=== PATIENT | female | born 1985 | race Caucasian/White ===

== ENCOUNTER 2016-12-16 09:43 | Emergency (ER) | payer OTHER ==
[~2016-12-16] VITALS: Ht 162.6 cm; Wt 70.3 kg
[~2016-12-16 09:43] MED LIST: ATIVAN1 MG PO; CEPHALEXIN500 M2 PO; CIPRO500 MG PO; CLEOCIN HCL300 MG PO; COLACE250 MG PO; DILAUDID2 MG PO; FEOSOL65 MG PO; FLEXERIL10 M1 PO; FLEXERIL10 MG PO; IMITREX100 MG PO; KEPPRA1000 MG PO; NORCO 10/325 MG1 TAB PO; PAXIL10 MG PO; PHENERGAN25 M1 PO; PRILOSEC40 MG PO; RESTORIL15 M1 PO; ROBAXIN500 M1 PO; TRAMADOL50 MG PO; TRANDATE100 M1 PO; TRILEPTAL600 MG PO; ULTRAM50 MG PO; VITAMIN D2000 I1 PO; ZANAFLEX4 MG PO; ZOFRAN ODT4 MG PO; ZOFRAN4 MG PO; ZOLADEX3.6 MG SC
--- NOTE | 2016-12-16 09:43 | NUR ---
PT BIBA TO BED 3 AT THIS TIME.
--- NOTE | 2016-12-16 09:45 | NUR ---
DR NORTH AT BEDSIDE EVALUATING PATIENT
[2016-12-16 09:46] VITALS: BP 132/92
--- NOTE | 2016-12-16 09:56 | NUR ---
PATIENT HAS AN 20 GA IV IN LEFT AC THAT WAS PLACED BY EMS.
--- NOTE | 2016-12-16 09:56 | NUR ---
PATIENT PRESENTS TO ED WITH POSSIBLE SIEZURE . PT STATES HER FAMILY MEMBER FOUND HER DOWN ON THE FLOOR AND SHE DOES NOT RECALL WHAT HAPPENED, PATIENT HAS A HX OF SEIZURES AND IS NOW C/O BILAT SHOULDER PAIN FROM POSSIBLE FALL TO THE GROUND . DENIES V/D; SKIN IS PINK/WARM/DRY; AAOX4 WITH EVEN AND STEADY GAIT; PT DENIES ANY FEVER, CP, SOB, OR COUGH AT THIS TIME; PATIENT STATES PAIN OF 6/10 AT THIS TIME; VSS; PATIENT POSITIONED FOR COMFORT; HOB ELEVATED; BEDRAILS UP X2; SEIZURE PRECAUTIONS IN PLACE ON BED, BED DOWN. ER MD MADE AWARE OF PT STATUS.
--- NOTE | 2016-12-16 10:10 | NUR ---
PATIENT TRANSPORT[place] [facility] BY COUNSELOR AID
[2016-12-16] MEDS ORDERED: KETOROLAC 30 MG/ML VIAL IVP ONE (10:15)
--- NOTE | 2016-12-16 10:36 | NUR ---
PATIENT BACK IN ROOM FROM XRAY, RESTING IN BED, BOTH SIDE RAILS UP X [address]
--- NOTE | 2016-12-16 11:36 | NUR ---
Patient discharged with v/s stable. Written and verbal after care instructions given and explained. Patient alert, oriented and verbalized understanding of instructions. Ambulatory with steady gait. All questions addressed prior to discharge. ID band removed. IV IN LEFT AC REMOVED, NO ACTIVE BLEEDING, SITE COVRERD WITH BANDAGE. Patient advised to follow up with PMD. Rx of NORCO given. Patient educated on indication of medication including possible reaction and side effects. Opportunity to ask questions provided and answered.
[2016-12-16 11:38] VITALS: BP 118/84
== END 2016-12-16 11:36 | disposition home or self-care (01) ==
LOC: MED 09:49
DX: M54.2 Cervicalgia (principal); M25.521 Pain in right elbow; M25.512 Pain in left shoulder; M25.511 Pain in right shoulder; R56.9 Unspecified convulsions
CPT/HCPCS: 72040; 73030; 73080; 81025; 96374; 99284; J1885

== ENCOUNTER 2017-06-15 22:36 | Emergency (ER) | payer OTHER ==
[~2017-06-15] VITALS: Ht 162.6 cm; Wt 83.9 kg
[~2017-06-15 22:36] MED LIST changes: -ATIVAN1 MG PO; -CEPHALEXIN500 M2 PO; -CIPRO500 MG PO; -CLEOCIN HCL300 MG PO; -COLACE250 MG PO; -DILAUDID2 MG PO; -FEOSOL65 MG PO; -FLEXERIL10 M1 PO; -FLEXERIL10 MG PO; -IMITREX100 MG PO; -KEPPRA1000 MG PO; +LEVE1000 PO; +LORA-476 PO; +METH500T14 PO; -NORCO 10/325 MG1 TAB PO; +OMEP40EC1 PO; +ONDA4TAB PO; +OXCA600T2 PO; +PAX10 PO; -PAXIL10 MG PO; -PHENERGAN25 M1 PO; -PRILOSEC40 MG PO; -RESTORIL15 M1 PO; -ROBAXIN500 M1 PO; +SUMA100T1 PO; +TRAM50TA94 PO; -TRAMADOL50 MG PO; -TRANDATE100 M1 PO; -TRILEPTAL600 MG PO; -ULTRAM50 MG PO; -VITAMIN D2000 I1 PO; -ZANAFLEX4 MG PO; -ZOFRAN ODT4 MG PO; -ZOFRAN4 MG PO; -ZOLADEX3.6 MG SC
[2017-06-15 22:51] VITALS: BP 112/86
--- NOTE | 2017-06-15 23:15 | NUR ---
PT TAKEN TO BED 3
--- NOTE | 2017-06-15 23:37 | NUR ---
MD CAME BY BEDSIDE TO EVALUATE PATIENT.
--- NOTE | 2017-06-15 23:40 | NUR ---
Dr. Sunshine evaluating patient at bedside.
[2017-06-15] MEDS ORDERED: HYDROmorphone 1 MG/ML AMP IVP ONE (23:45)
[2017-06-15] MEDS ORDERED: ONDANSETRON 4 MG/2 ML VIAL IVP ONE (23:45)
[2017-06-15] MEDS ORDERED: NACL 0.9% 1,000 ML IV ONE (23:45)
--- NOTE | 2017-06-15 23:55 | NUR ---
GAUGE 20 IV LINE ESTABLISHED TO THE RIGHT WRIST. BLOOD ALSO DRTAWN AND SENT TO THE LAB.
[2017-06-16 00:02] LABS: EOSINOPHILS # (AUTO) 0.1 K/uL (0-0.4); RED BLOOD CELL COUNT(AUTO) 4.05 MIL/uL (4.20-5.40); WHITE BLOOD COUNT (AUTO) 8.9 K/uL (4.8-10.8)
[2017-06-16 00:07] LABS: BASOPHILS # (AUTO) 0.3 K/uL (0.00-0.22); BASOPHILS % (AUTO) 3.2 % (0.0-2.0); EOSINOPHILS % (AUTO) 1.1 % (0.0-4.0); HEMATOCRIT 39.8 % (36-48); HEMOGLOBIN 13.3 g/dL (12.0-16.0); LYMPHOCYTES # (AUTO) 3.1 K/uL (2.5-16.5); LYMPHOCYTES % (AUTO) 35.3 % (20.5-51.1); MEAN CORPUSCULAR HEMOGLOBIN 33 pg (27-31); MEAN CORPUSCULAR HGB CONC 33 g/dL (33-37); MEAN CORPUSCULAR VOLUME 98 fL (80-94); MONOCYTES # (AUTO) 0.5 K/uL (0.8-1.0); MONOCYTES % (AUTO) 5.6 % (1.7-9.3); NEUTROPHILS # (AUTO) 4.9 K/uL (1.8-7.7); NEUTROPHILS % (AUTO) 54.8 % (42.2-75.2); PLATELET COUNT (AUTO) 382 K/uL (140-450); RED CELL DISTRIBUTION WIDTH 13.8 % (11.6-13.7)
--- NOTE | 2017-06-16 00:08 | NUR ---
NS 1 LITER @ 100 ML/HR,DILAUDID 1 MG IVP AND ZOFRAN 4 MG IVP GIVEN ORDERED. PT.HOOKED TO THE OFFICE SERVICE COORDINATOR.
[2017-06-16 00:15] LABS: ANION GAP 13.7 (8-16); CARBON DIOXIDE 26.6 mmol/L (21-32); POTASSIUM 4.3 mmol/L (3.5-5.1)
[2017-06-16 00:16] LABS: CREATININE 0.8 mg/dL (0.6-1.3)
[2017-06-16 00:22] LABS: ALBUMIN 3.4 g/dL (3.4-5.0); TOTAL BILIRUBIN 0.2 mg/dL (0.0-1.0)
[2017-06-16 00:23] LABS: PROTHROMBIN TIME 9.3 secs (10.8-13.4)
--- NOTE | 2017-06-16 00:46 | NUR ---
Ultrasound at bedside.
--- NOTE | 2017-06-16 00:47 | NUR ---
CARE TRANSITION COORDINATOR AT BEDSIDE TO DO PELVIC US.
[2017-06-16] MEDS ORDERED: HYDROmorphone 1 MG/ML AMP IVP ONE ×2 (01:25→04:15)
[2017-06-16] MEDS ORDERED: ONDANSETRON 4 MG/2 ML VIAL IVP ONE (01:25)
--- NOTE | 2017-06-16 01:42 | NUR ---
ANOTHER DOSE OF DILAUDID 1 MG IVP AND ZOFRAN 4 MG IVP GIVEN ORDERED FOR WOSENING PAIN AND NAUSEA.
--- NOTE | 2017-06-16 02:10 | NUR ---
VERBALIZED IMPROVEMENT OF PAIN AND NAUSEA. STILL WAITING FOR ULTRASOUND REPORT. VS REMAIN STABLE.
[2017-06-16] MEDS ORDERED: PROCHLORPERAZINE 10 MG/2 ML VIAL IVP ONE (03:05)
--- NOTE | 2017-06-16 03:07 | NUR ---
PATIENT ALSO SIGNED WAIVER TO DO CT SCAN WITHOUT TEST.
--- NOTE | 2017-06-16 03:07 | NUR ---
COMPLAINED OF PERSISTENT NAUSEA. MD NOTIFIED. MD BACK AT BEDSIDE TO REEVALUATE AND DISCUSS PLAN OF CARE WITH PATIENT. COMPAZINE 10 MG IVP GIVEN ORDERED.
--- NOTE | 2017-06-16 03:12 | NUR ---
WENT FOR CT SCAN OF ABDOMEN AND PELVIS VIA WHEELCHAIR.
--- NOTE | 2017-06-16 04:30 | NUR ---
Patient discharged with v/s stable. Written and verbal after care instructions given and explained. Patient alert, oriented and verbalized understanding of instructions. Ambulatory with steady gait. All questions addressed prior to discharge. ID band removed. Patient advised to follow up with PMD. Rx of NORCO,REGLAN,ZOFRAN given. Patient educated on indication of medication including possible reaction and side effects. Opportunity to ask questions provided and answered.
[2017-06-16 04:43] VITALS: BP 121/79
== END 2017-06-16 04:30 | disposition home or self-care (01) ==
LOC: MED 22:36
DX: N83.201 Unspecified ovarian cyst, right side (principal); R03.0 Elevated blood-pressure reading, without diagnosis of hypertension; K21.9 Gastro-esophageal reflux disease without esophagitis
CPT/HCPCS: 36415; 74176; 76856; 80053; 81002; 81025; 85025; 85610; 85730; 96361; 96374; 96375; 96376; 99285; J0780; J1170; J2405; J7030; Q0092

== ENCOUNTER 2017-07-23 12:51 | Inpatient (IN) | payer OTHER ==
[~2017-07-23] VITALS: Ht 162.6 cm; Wt 83.5 kg
[~2017-07-23 12:51] MED LIST changes: +TRAM50TA1 PO; -TRAM50TA94 PO
[2017-07-23 12:59] VITALS: BP 125/31
[2017-07-23] MEDS ORDERED: NACL 0.9% 1,000 ML IV ONE (13:05)
[2017-07-23 13:18] LABS: HEMATOCRIT 45.7 % (36-48); HEMOGLOBIN 14.6 g/dL (12.0-16.0); MEAN CORPUSCULAR HEMOGLOBIN 32 pg (27-31); MEAN CORPUSCULAR HGB CONC 32 g/dL (33-37); MEAN CORPUSCULAR VOLUME 99 fL (80-94); PLATELET COUNT (AUTO) 320 K/uL (140-450); RED CELL DISTRIBUTION WIDTH 14.8 % (11.6-13.7); WHITE BLOOD COUNT (AUTO) 7.1 K/uL (4.8-10.8)
[2017-07-23 13:28] LABS: ANION GAP 14.1 (8-16); CARBON DIOXIDE 29.7 mmol/L (21-32); CHLORIDE 109 mmol/L (98-107); GFR ARICAN-AMERICAN 83 mL/min (>90); GLUCOSE 89 mg/dL (74-106); POTASSIUM 3.8 mmol/L (3.5-5.1); PROTHROMBIN TIME 10.2 secs (10.8-13.4); SODIUM SERUM 149 mmol/L (136-145); UREA NITROGEN, BLOOD 5 mg/dL (7-18)
[2017-07-23 13:34] LABS: BASOPHILS % (MANUAL) 1 % (0-2); EOSINOPHILS % (MANUAL) 3 % (0-4); LYMPHOCYTES % (MANUAL) 55 % (20-46); MONOCYTES % (MANUAL) 5 % (5-12)
[2017-07-23 13:38] LABS: ALBUMIN 3.7 g/dL (3.4-5.0); ASPARTATE AMINOTRANSFERASE 232 U/L (15-37); TOTAL BILIRUBIN 0.4 mg/dL (0.0-1.0)
[2017-07-23 13:42] LABS: ACETAMINOPHEN < 0.5 ug/ml (10-30); SALICYLATE < 2.8 mg/dL (2.8-20.0)
[2017-07-23] MEDS ORDERED: NACL 0.9% 2,000 ML IV ONE (14:25)
[2017-07-23 14:51] LABS: BARBITURATE, URINE NEG. ng/ml (NEG <=200); BENZODIAZEPINE, URINE NEG. ng/mL (NEG <=200); CANNABINOID, URINE NEG. ng/mL (NEG <=50); COCAINE, URINE NEG. ng/mL (NEG <=300); OPIATE, URINE NEG. ng/mL (NEG <=2000); PHENCYCLIDINE SCREEN,URINE NEG. ng/mL (NEG <=25)
[2017-07-23] MEDS ORDERED: KETOROLAC 30 MG/ML VIAL IVP ONE (15:25)
[2017-07-23] MEDS ORDERED: MORPHINE SULFATE 4 MG/ML SYR IVP ONE ×2 (15:35→15:40)
[2017-07-23] MEDS ORDERED: NACL 0.9% 1,000 ML IV SCH (15:44)
[2017-07-23] MEDS ORDERED: LORazepam 2 MG/ML VIAL IVP PRN (15:45)
[2017-07-23 16:35] VITALS: BP 143/89
[2017-07-23 20:00] VITALS: BP 136/98
[2017-07-23] MEDS: MORPHINE SULFATE 2 MG/ML SYR IVP PRN (20:32)
[2017-07-23] MEDS: levETIRAcetam 500 MG TAB PO SCH (20:32)
[2017-07-23] MEDS: DEXT 5% / NACL 0.45% 1,000 ML IV SCH (21:47)
[2017-07-24] VITALS: BP 122/80
[2017-07-24] MEDS: MORPHINE SULFATE 2 MG/ML SYR IVP PRN ×5 (00:32→18:39)
[2017-07-24] MEDS: ONDANSETRON 4 MG/2 ML VIAL IVP PRN ×4 (05:43→18:38)
[2017-07-24 06:13] LABS: BASOPHILS # (AUTO) 0.3 K/uL (0.00-0.22); BASOPHILS % (AUTO) 3.2 % (0.0-2.0); EOSINOPHILS # (AUTO) 0.1 K/uL (0-0.4); EOSINOPHILS % (AUTO) 1.1 % (0.0-4.0); HEMATOCRIT 41.1 % (36-48); HEMOGLOBIN 13.6 g/dL (12.0-16.0); LYMPHOCYTES # (AUTO) 2.5 K/uL (2.5-16.5); LYMPHOCYTES % (AUTO) 25.8 % (20.5-51.1); MEAN CORPUSCULAR HEMOGLOBIN 33 pg (27-31); MEAN CORPUSCULAR HGB CONC 33 g/dL (33-37); MEAN CORPUSCULAR VOLUME 100 fL (80-94); MONOCYTES # (AUTO) 0.9 K/uL (0.8-1.0); NEUTROPHILS # (AUTO) 5.7 K/uL (1.8-7.7); NEUTROPHILS % (AUTO) 60.9 % (42.2-75.2); PLATELET COUNT (AUTO) 258 K/uL (140-450); RED BLOOD CELL COUNT(AUTO) 4.11 MIL/uL (4.20-5.40); RED CELL DISTRIBUTION WIDTH 14.6 % (11.6-13.7); WHITE BLOOD COUNT (AUTO) 9.5 K/uL (4.8-10.8)
[2017-07-24 07:03] LABS: ALBUMIN 3.4 g/dL (3.4-5.0); ANION GAP 12.4 (8-16); CARBON DIOXIDE 28.1 mmol/L (21-32); CREATININE 0.8 mg/dL (0.6-1.3); MAGNESIUM 1.5 mg/dL (1.8-2.4); PHOSPHORUS 3.2 mg/dL (2.5-4.9); POTASSIUM 3.5 mmol/L (3.5-5.1); TOTAL BILIRUBIN 0.7 mg/dL (0.0-1.0)
[2017-07-24] MEDS: DEXT 5% / NACL 0.45% 1,000 ML IV SCH ×2 (07:29→17:13)
[2017-07-24] MEDS ORDERED: INFLUENZA VIRUS VACCINE QUAD 0.5 ML SYR IMVAC PRN (07:30)
[2017-07-24 08:00] VITALS: BP 115/91
[2017-07-24] MEDS: PANTOPRAZOLE 40 MG INJ VIAL IVP SCH (08:27)
[2017-07-24] MEDS: levETIRAcetam 500 MG TAB PO SCH ×2 (08:27→20:35)
[2017-07-24] MEDS: ENOXAPARIN 40 MG/0.4 ML SYR SUBQ SCH (08:28)
[2017-07-24] MEDS ORDERED: ACET-5629 PO (10:07)
[2017-07-24 15:56] VITALS: BP 124/90
[2017-07-24 19:56] VITALS: BP 139/89
[2017-07-24] MEDS: MAGNESIUM OXIDE 400 MG TAB PO SCH (20:35)
[2017-07-24] MEDS: HYDROmorphone 1 MG/ML AMP IVP PRN (23:20)
[2017-07-25] VITALS: BP 134/95
[2017-07-25] MEDS: ONDANSETRON 4 MG/2 ML VIAL IVP PRN ×2 (03:40→13:52)
[2017-07-25] MEDS: DEXT 5% / NACL 0.45% 1,000 ML IV SCH ×2 (03:43→13:35)
[2017-07-25] MEDS: HYDROmorphone 1 MG/ML AMP IVP PRN ×3 (03:54→13:52)
[2017-07-25 06:22] LABS: ALBUMIN 3.6 g/dL (3.4-5.0); ANION GAP 12.2 (8-16); CARBON DIOXIDE 26.8 mmol/L (21-32); CREATININE 0.9 mg/dL (0.6-1.3)
[2017-07-25 07:50] VITALS: BP 124/72
[2017-07-25] MEDS ORDERED: POTASSIUM CHLORIDE 10 MEQ TABER PO SCH (08:05)
[2017-07-25] MEDS: levETIRAcetam 500 MG TAB PO SCH (08:31)
[2017-07-25] MEDS: MAGNESIUM OXIDE 400 MG TAB PO SCH (08:31)
[2017-07-25] MEDS: ENOXAPARIN 40 MG/0.4 ML SYR SUBQ SCH (08:35)
[2017-07-25] MEDS ORDERED: CLINICAL MONITORING MC SCH (09:00)
[2017-07-25] MEDS: PANTOPRAZOLE 40 MG INJ VIAL IVP SCH (09:01)
[2017-07-25 15:04] VITALS: BP 136/95
== END 2017-07-25 15:25 | disposition home or self-care (01) | DRG 282 ==
LOC: MED 12:51 → MTU 15:47
PROVIDERS: ADMIT Hospitalist; ATTEND Hospitalist
DX: K85.20 Alcohol induced acute pancreatitis without necrosis or infection (principal); E87.0 Hyperosmolality and hypernatremia; E66.9 Obesity, unspecified; K21.9 Gastro-esophageal reflux disease without esophagitis; F10.129 Alcohol abuse with intoxication, unspecified; Y90.8 Blood alcohol level of 240 mg/100 ml or more; E83.42 Hypomagnesemia; G89.29 Other chronic pain; G40.909 Epilepsy, unspecified, not intractable, without status epilepticus; M51.36 Other intervertebral disc degeneration, lumbar region; Z72.89 Other problems related to lifestyle; Z68.31 Body mass index [BMI] 31.0-31.9, adult; Z87.891 Personal history of nicotine dependence
CPT/HCPCS: 36415; 76705; 80053; 80305; 81002; 81025; 83690; 83735; 84100; 85025; 85610; 87081; 90658; 96361; 96374; 99285; C9113; G0480; G0482; J1170; J1650; J1885; J2270; J2405; J7030; Q0092

== ENCOUNTER 2017-11-13 10:17 | Emergency (ER) | payer OTHER ==
[~2017-11-13] VITALS: Ht 162.6 cm; Wt 90.9 kg
[~2017-11-13 10:17] MED LIST changes: +ACET-5629 PO
[2017-11-13 10:28] VITALS: BP 135/89
--- NOTE | 2017-11-13 10:36 | NUR ---
PT AMBULATED TO ER BED 03
--- NOTE | 2017-11-13 10:40 | NUR ---
32 F WITH C/O 7/10 RIGHT ANKLE SWELLING/PAIN X 3 WKS, PRGRESSIVELY GETTING WORSE; DISCOLORATION PRESENT BUT PT STS GETTING BETTER; PT DENIES INJURY OR RECENT FALLS. SKIN AND CMS INTACT TO RIGHT FOOT. PT IS AOX4. GCS=15. RR ARE EVEN AND UNLABORED. NAD. ER MD SECHRIST BY BEDSIDE. WILL CONTINUE TO MONITOR.
[2017-11-13] MEDS ORDERED: HYDROcodone/APAP 5/325 MG 1 TAB TAB PO ONE (10:45)
--- NOTE | 2017-11-13 10:58 | NUR ---
XRAY BY BEDSIDE
--- NOTE | 2017-11-13 11:52 | NUR ---
Patient discharged with v/s stable. Written and verbal after care instructions given and explained. Patient verbalized understanding. Ambulatory with steady gait. All questions addressed prior to discharge. Advised to follow up with PMD.
[2017-11-13 11:53] VITALS: BP 135/89
== END 2017-11-13 11:52 | disposition home or self-care (01) ==
LOC: MED 10:17
DX: S93.401A Sprain of unspecified ligament of right ankle, initial encounter (principal); R03.0 Elevated blood-pressure reading, without diagnosis of hypertension; X58.XXXA Exposure to other specified factors, initial encounter; Y93.89 Activity, other specified; Y92.89 Other specified places as the place of occurrence of the external cause; Y99.8 Other external cause status
CPT/HCPCS: 73610; 73630; 99284; Q0092

== ENCOUNTER 2018-01-22 04:12 | Inpatient (IN) | payer OTHER ==
[~2018-01-22] VITALS: Ht 162.6 cm; Wt 58.5 kg
[2018-01-22 04:12] VITALS: BP 135/92
--- NOTE | 2018-01-22 04:12 | NUR ---
BIBA FOR ALOC AND NVD. PT SPEECH IS SLOW, RESPONDS APPROPRIATELY TO QUESTIONS ASKED, JUST TAKES PT AWHILE TO RESPOND. PT JUST STATES SHE IS TIRED. PT SKIN IS PINK/WARM/DRY; LUNGS CLEAR BL; HR EVEN AND REGULAR;NO FEVER, CP, SOB, OR COUGH AT THIS TIME; PATIENT STATES PAIN OF 0/10 AT THIS TIME; PATIENT POSITIONED FOR COMFORT; HOB ELEVATED; BEDRAILS UP X2; BED DOWN. ER MD MADE AWARE OF PT STATUS.
[2018-01-22 05:31] LABS: APPEARANCE,URINE HAZY (CLEAR); BILIRUBIN,URINE NEGATIVE (NEGATIVE); BLOOD, URINE NEGATIVE (NEGATIVE); COLOR,URINE YELLOW (YELLOW); LEUKOCYTE ESTERASE ,URINE NEGATIVE (NEGATIVE); NITRITE, URINE NEGATIVE (NEGATIVE); UGLUCOSE NEGATIVE (NEGATIVE)
[2018-01-22 05:33] LABS: BASOPHILS % (AUTO) 0.2 % (0.0-2.0); EOSINOPHILS % (AUTO) 0.1 % (0.0-4.0); HEMATOCRIT 39.6 % (36-48); HEMOGLOBIN 13.3 g/dL (12.0-16.0); LYMPHOCYTES # (AUTO) 1.9 K/uL (2.5-16.5); MEAN CORPUSCULAR HEMOGLOBIN 32 pg (27-31); MEAN CORPUSCULAR HGB CONC 34 g/dL (33-37); MEAN CORPUSCULAR VOLUME 95.7 fL (80-94); MONOCYTES # (AUTO) 0.2 K/uL (0.8-1.0); MONOCYTES % (AUTO) 3.5 % (1.7-9.3); NEUTROPHILS # (AUTO) 2.5 K/uL (1.8-7.7); NEUTROPHILS % (AUTO) 55.2 % (42.2-75.2); PLATELET COUNT (AUTO) 236 K/uL (140-450); RED BLOOD CELL COUNT(AUTO) 4.13 MIL/uL (4.20-5.40); RED CELL DISTRIBUTION WIDTH 14.6 % (11.6-13.7); WHITE BLOOD COUNT (AUTO) 4.5 K/uL (4.8-10.8)
[2018-01-22 05:37] LABS: BARBITURATE, URINE NEG. ng/ml (NEG <=200); BENZODIAZEPINE, URINE NEG. ng/mL (NEG <=200); CANNABINOID, URINE NEG. ng/mL (NEG <=50); COCAINE, URINE NEG. ng/mL (NEG <=300); OPIATE, URINE NEG. ng/mL (NEG <=2000); PHENCYCLIDINE SCREEN,URINE NEG. ng/mL (NEG <=25)
[2018-01-22 05:55] LABS: ANION GAP 14.9 (8-16); CARBON DIOXIDE 24.5 mmol/L (21-32); CHLORIDE 107 mmol/L (98-107); GFR ARICAN-AMERICAN 83 mL/min (>90); GLUCOSE 93 mg/dL (74-106); POTASSIUM 4.4 mmol/L (3.5-5.1); SODIUM SERUM 142 mmol/L (136-145); UREA NITROGEN, BLOOD 9 mg/dL (7-18)
[2018-01-22 05:57] LABS: RBC,URINE 0-5 (RARE) /HPF (0-5); WBC,URINE 0-5 (RARE) /HPF (0-5)
[2018-01-22 06:02] LABS: ALBUMIN 3.4 g/dL (3.4-5.0); ASPARTATE AMINOTRANSFERASE 12 U/L (15-37); TOTAL BILIRUBIN 0.2 mg/dL (0.0-1.0)
[2018-01-22 06:03] LABS: ACETAMINOPHEN < 0.5 ug/ml (10-30); SALICYLATE < 2.8 mg/dL (2.8-20.0)
--- NOTE | 2018-01-22 07:00 | NUR ---
Patient appears to be resting comfortably in bed. Vital Signs within normal limits. Respirations even and unlabored.
--- NOTE | 2018-01-22 07:05 | NUR ---
Pt report given to AM SCOTTY Rangel. Transfer of care at this time.
--- NOTE | 2018-01-22 07:23 | NUR ---
REPORT RECEIEVED FROM MARY FAJARDO. PT IN BED AROUSABLE TO NAME BUT WAS CONFUSED ABOUT WHERE SHE WAS, SHE KNEW SHE WAS IN A HOSPITAL BUT DIDNT KNOW WHICH ONE. PT DISPLAYED FACIAL GRIMACING AND SAID HER BACK PAIN WAS 8/10. SHE DENIES N/V/D AT THIS TIME.
[2018-01-22] MEDS ORDERED: NACL 0.9% 1,000 ML IV ONE (08:05)
--- NOTE | 2018-01-22 08:06 | NUR ---
PT TAKEN TO CT
[2018-01-22 10:40] VITALS: BP 140/90
--- NOTE | 2018-01-22 10:40 | NUR ---
PATIENT ARRIVED ON MST UNIT FROM ER BED/GURNEY. ABLE TO WALK FROM ER BED/GURNEY TO MST BED. NO DISTRESS NOTED. RESPIRATIONS EVEN, UNLABORED, ON ROOM AIR. AAOX3, CALM, COOPERATIVE, REPORT FEELING FATIGUE. SKIN COLOR APPROPRIATE TO ETHNICITY, WARM TO TOUCH. IV SITE INTACT, PATENT, AND INFUSING IVF BOLUS HALF BAG COMPLETED FROM ER. ABDOMEN SOFT, NON-DISTENDED. LUNGS CTA ON ALL LOBES. ORIENTED PATIENT TO ROOM AND CALL LIGHT. SAFETY MEASURES IN PLACE, CALL LIGHT WITHIN REACH, SEIZURE PRECAUTIONS IN PLACE. WILL CONTINUE TO MONITOR.
--- NOTE | 2018-01-22 10:51 | NUR ---
Patient will be admitted to care of DR BRAMBILA. Admited to TELE. Will go to room 111A. Belongings list completed. Report to NOLAN FAJARDO.
--- NOTE | 2018-01-22 11:15 | NUR ---
DR. CANCINO AT BEDSIDE REVIEWING PLAN OF CARE WITH PATIENT. WILL CONTINUE TO MONITOR.
[2018-01-22] MEDS ORDERED: LORazepam 2 MG/ML VIAL IM/IVP PRN (11:25)
[2018-01-22] MEDS ORDERED: ONDANSETRON 4 MG/2 ML VIAL IVP PRN ×2 (11:25→16:50)
--- NOTE | 2018-01-22 11:30 | NUR ---
FAXED THE CONFIDENTIAL MORBIDITY REPORT FORM TO [phone] NO RESPONSE TRIED IT AGAIN NO RESPONSE . NOTIFIED DR CANCINO ,CALLED THE AFTER HR SPOKE WITH CHATA FONSECA NO OTHER FAX # SUGGESTED TO TRY IT TOMORROW.
[2018-01-22 12:00] VITALS: BP 112/67
--- NOTE | 2018-01-22 12:05 | NUR ---
NEW ADMIT WITH INSUFFICIENT DATA IN PT MEDICAL CHART TO BE NUTRITIONALLY SCREENED OR CATEGORIZED. PATIENT IS NUTRITION SCREEN DUE IN TWO DAYS. 01/24/18 TALIB GEE MBA, RD
[2018-01-22] MEDS: levETIRAcetam 1,500 MG in NACL 0.9% 100 ML IV SCH (12:10)
[2018-01-22] MEDS: OXcarbazepine 150 MG TAB PO SCH ×2 (12:19→18:18)
--- NOTE | 2018-01-22 12:22 | NUR ---
PATIENT SITTING IN BED WATCHING TV. PATIENT AMBULATED TO BATHROOM AND BACK TO BED WITH STEADY GAIT. PATIENT HAS SLIGHT TREMORS ON B/L UE. SCHEDULED MEDICATIONS DUE GIVEN PER MD ORDERS. SAFETY MEASURES IN PLACE, CALL LIGHT WITHIN REACH. WILL CONTINUE TO MONITOR.
[2018-01-22] MEDS: MORPHINE SULFATE 4 MG/ML SYR IVP PRN ×2 (13:52→18:19)
--- NOTE | 2018-01-22 14:30 | NUR ---
PATIENT LYING IN BED, AROUSABLE BY VOICE. NO DISTRESS NOTED. PAIN WITHIN TOLERABLE. CONDITION UNCHANGED. WILL CONTINUE TO MONITOR.
[2018-01-22 16:00] VITALS: BP 133/94
--- NOTE | 2018-01-22 16:45 | NUR ---
DR. BRAMBILA AT BEDSIDE REVIEWING PLAN OF CARE WITH PATIENT. WILL CONTINUE TO MONITOR.
[2018-01-22] MEDS ORDERED: LORazepam 2 MG/ML VIAL IVP PRN (16:50)
[2018-01-22] MEDS ORDERED: MORPHINE SULFATE 2 MG/ML SYR IVP PRN (16:50)
[2018-01-22] MEDS ORDERED: MULTIVITAMIN-12 10 ML, THIAMINE 100 MG, MAGNESIUM SULFATE 50% 2,000 MG, FOLIC ACID 5 MG... IV ONE ×5 (16:50)
[2018-01-22] MEDS ORDERED: ACETAMINOPHEN 325 MG TAB PO PRN (16:50)
[2018-01-22 17:25] LABS: AMYLASE 47 U/L (25-115); LIPASE 64 U/L (73-393)
--- NOTE | 2018-01-22 18:00 | NUR ---
PATIENT SITTING IN BED WITH DINNER TRAY IN FRONT. NO DISTRESS NOTED. COMPLAINTS OF PAIN, MORPHINE GIVEN PER ORDERS. SAFETY MEASURES IN PLACE. WILL CONTINUE TO MONITOR.
--- NOTE | 2018-01-22 19:21 | NUR ---
ENDORSED TO PM NURSE AT BEDSIDE. PT IN STABLE CONDITION.
--- NOTE | 2018-01-22 19:22 | NUR ---
RECEIVED REPORT FROM DAY SHIFT NURSE NOLAN-RN. PT RESTING IN BED. AOX3, AMBULATORY, ON ROOM AIR. IV LEFT AC#20G. DISCUSSED PLAN OF CARE AND PT VERBALIZED UNDERSTANDING. UPDATED WHITE BOARD. NO S/S OF RESPIRATORY DISTRESS OR DISCOMFORT AT THIS TIME. BED IN LOWEST POSITION. BED SIDE TABLE AND CALL LIGHT WITHIN REACH. WILL CONTINUE TO MONITOR.
[2018-01-22 20:00] VITALS: BP 149/104
[2018-01-22] MEDS ORDERED: MULTIVITAMIN-12 10 ML VIAL IV ONE (21:15)
[2018-01-22] MEDS ORDERED: MAGNESIUM SULFATE 50% 1000 MG/2 ML VIAL IV ONE (21:16)
[2018-01-22] MEDS ORDERED: FOLIC ACID 5 MG/ML SYR ONE (21:17)
[2018-01-22] MEDS ORDERED: THIAMINE 200 MG/2 ML VIAL ONE (21:40)
--- NOTE | 2018-01-22 22:05 | NUR ---
LIBRIUM GIVEN AT 2152. BANANA BAG STARTED AT 2202. BOTH UNAVAILABLE WHEN SCHEDULED. [facility] FIRE CONTROL OFFICER CALLED TO RETRIEVE MEDICATION. UNAVAILABLE ON THE UNIT. PT TOLERATING WELL. WILL CONTINUE TO MONITOR.
[2018-01-22] MEDS ORDERED: MORPHINE SULFATE 4 MG/ML SYR ONE (22:30)
--- NOTE | 2018-01-22 22:35 | NUR ---
MORPHINE SULFATE GIVEN FOR BACK PAIN. WILL CONTINUE TO MONITOR.
[2018-01-23] VITALS: BP 154/104
[2018-01-23] MEDS: levETIRAcetam 1,500 MG in NACL 0.9% 100 ML IV SCH ×2 (00:15→12:54)
--- NOTE | 2018-01-23 00:15 | NUR ---
VITAL SIGNS TOLERATED WELL. SCHEDULED MEDICATIONS GIVEN AND TOLERATED WELL. WILL CONTINUE TO MONITOR.
--- NOTE | 2018-01-23 02:00 | NUR ---
PT RESTING IN BED. NO S/S OF RESPIRATORY DISTRESS. WILL CONTINUE TO MONITOR.
[2018-01-23 04:00] VITALS: BP 144/101
[2018-01-23] MEDS ORDERED: MORPHINE SULFATE 4 MG/ML SYR ONE (04:09)
--- NOTE | 2018-01-23 04:11 | NUR ---
MORPHINE SULFATE GIVEN FOR BACK PAIN. WILL CONTINUE TO MONITOR.
--- NOTE | 2018-01-23 06:14 | NUR ---
PT STATED BACK PAIN INCREASING REQUESTING HOT PACK BUT UNAVAILABLE ON THE UNIT. TRYING A WARM BLANKET. WILL TRY COLD PACK. EDUCATED ON WALKING AROUND THE UNIT POSSIBLY BEING HELPFUL INSTEAD OF LAYING IN BED CONTINUOUSLY. WILL CONTINUE TO MONITOR.
[2018-01-23 06:47] LABS: BASOPHILS # (AUTO) 0.3 K/uL (0.00-0.22); BASOPHILS % (AUTO) 4.5 % (0.0-2.0); EOSINOPHILS % (AUTO) 0.5 % (0.0-4.0); HEMATOCRIT 36.5 % (36-48); HEMOGLOBIN 12.5 g/dL (12.0-16.0); LYMPHOCYTES # (AUTO) 2.6 K/uL (2.5-16.5); LYMPHOCYTES % (AUTO) 43.7 % (20.5-51.1); MEAN CORPUSCULAR HEMOGLOBIN 33 pg (27-31); MEAN CORPUSCULAR HGB CONC 34 g/dL (33-37); MEAN CORPUSCULAR VOLUME 95.9 fL (80-94); MONOCYTES # (AUTO) 0.6 K/uL (0.8-1.0); MONOCYTES % (AUTO) 11.1 % (1.7-9.3); NEUTROPHILS # (AUTO) 2.3 K/uL (1.8-7.7); NEUTROPHILS % (AUTO) 40.2 % (42.2-75.2); PLATELET COUNT (AUTO) 191 K/uL (140-450); RED BLOOD CELL COUNT(AUTO) 3.81 MIL/uL (4.20-5.40); RED CELL DISTRIBUTION WIDTH 13.7 % (11.6-13.7); WHITE BLOOD COUNT (AUTO) 5.8 K/uL (4.8-10.8)
--- NOTE | 2018-01-23 07:30 | NUR ---
ENDORSED PT CARE TO DAY SHIFT NURSE JANIE FOR CONTINUITY OF CARE. PT CURRENTLY IN STABLE CONDITION.
--- NOTE | 2018-01-23 07:35 | NUR ---
RECEIVED REPORT FROM SLOT OPERATIONS DIRECTOR NURSE, PT IS RESTING IN BED, PT IS AAOX4, AMBULATORY, PT HAS IV ON LEFT AC, PATENT, INTACT, FLUSHING WELL, SKIN IS INTACT, NO S/S OF RESPIRATORY DISTRESS OR DISCOMFORT NOTED, DISCUSSED PLAN OF CARE WITH PT, PT VERBALIZED UNDERSTANDING, SAFETY/FALL/SEIZURE PRECAUTIONS ARE IN PLACE, CALL LIGHT WITHIN REACH, WILL CONTINUE TO MONITOR.
[2018-01-23 07:54] LABS: ANION GAP 12.4 (8-16); CARBON DIOXIDE 26.5 mmol/L (21-32); CREATININE 1.1 mg/dL (0.6-1.3); POTASSIUM 3.9 mmol/L (3.5-5.1)
[2018-01-23 07:57] LABS: ALBUMIN 3.2 g/dL (3.4-5.0); TOTAL BILIRUBIN 0.3 mg/dL (0.0-1.0)
[2018-01-23 08:00] VITALS: BP 144/109
[2018-01-23] MEDS: OXcarbazepine 150 MG TAB PO SCH ×2 (08:28→12:55)
[2018-01-23] MEDS ORDERED: ENOXAPARIN 40 MG/0.4 ML SYR SUBQ SCH (09:00)
--- NOTE | 2018-01-23 09:46 | NUR ---
PATIENT HAS BEEN SCREENED AND CATEGORIZED HIGH NUTRITION RISK. PATIENT WILL BE SEEN WITHIN 1-2 DAYS OF ADMISSION. 01/23/18 - 01/24/[address]
--- NOTE | 2018-01-23 12:00 | NUR ---
ENDORSED PT TO SCOTTY GASCA FOR CONTINUITY OF CARE. PT STABLE AT THIS TIME.
--- NOTE | 2018-01-23 12:06 | NUR ---
RECEIVED REPORT FROM SCOTTY QUEEN. PATIENT ALERT AND ORIENTED X3 LYING IN THE BED C/C OF HEADACHE 04/18.CALL LIGHT WITHIN REACH.CONTINUE MONITORING PAIN.
[2018-01-23] MEDS ORDERED: MORPHINE SULFATE 4 MG/ML SYR IVP PRN (12:09)
[2018-01-23 13:00] VITALS: BP 147/105
--- NOTE | 2018-01-23 13:14 | NUR ---
CM NOTE INITIAL REVIEW FAXED TO [facility] [phone] ALIREZA # [phone]
--- NOTE | 2018-01-23 16:01 | NUR ---
01/23/18 RD INITIAL ASSESSMENT COMPLETED PLEASE REFER TO NUTRITION ASSESSMENT UNDER CARE ACTIVITY FOR ESTIMATED NUTRITIONAL NEEDS. 1.CONTINUE WITH REGULAR DIET TOLERATED 2. RD TO FOLLOW-UP 7 DAYS, LOW RISK CAMERON BERGER RD
[2018-01-23 16:38] VITALS: BP 145/105
--- NOTE | 2018-01-23 18:30 | NUR ---
PATIENT DISCHARGED TO HOME BY AMBULATE. ALERT AND ORIENTED X3 PATIENT'S BOY FRIEND PICK HER UP. GIVEN DISCHARGE INSTRUCTION,MARS.PATIENT ABLE TO SIGN DC PAPER AND VERBALIZED UNDERSTANDING.
== END 2018-01-23 18:30 | disposition home or self-care (01) | DRG 52 ==
LOC: MED 04:12 → MTU 09:55
PROVIDERS: ADMIT Hospitalist; ATTEND Hospitalist
DX: G92 Toxic encephalopathy (principal); F10.129 Alcohol abuse with intoxication, unspecified; G40.909 Epilepsy, unspecified, not intractable, without status epilepticus; Y90.5 Blood alcohol level of 100-119 mg/100 ml; Z79.899 Other long term (current) drug therapy; Z83.3 Family history of diabetes mellitus; Z82.49 Family history of ischemic heart disease and other diseases of the circulatory system; Z82.5 Family history of asthma and other chronic lower respiratory diseases
CPT/HCPCS: 36415; 70450; 80053; 80305; 81001; 81025; 82150; 83690; 85025; 87081; 93005; 99285; A9153; G0480; G0482; J1650; J1953; J2270; J3411; J3475; J3490; J7030

== ENCOUNTER 2018-07-08 11:37 | Emergency (ER) | payer OTHER ==
[~2018-07-08] VITALS: Ht 162.6 cm; Wt 81.6 kg
[~2018-07-08 11:37] MED LIST changes: -ACET-5629 PO
[2018-07-08 11:51] VITALS: BP 134/81
[2018-07-08] MEDS ORDERED: KETOROLAC 30 MG/ML VIAL IVP ONE (12:45)
[2018-07-08] MEDS ORDERED: LEVOFLOXACIN 500 MG/D5W PREMIX 100 ML IV ONE (12:45)
[2018-07-08] MEDS ORDERED: NACL 0.9% 1,000 ML IV ONE (12:45)
[2018-07-08 14:57] VITALS: BP 124/90
== END 2018-07-08 14:52 | disposition home or self-care (01) ==
LOC: MED 11:37
DX: J06.9 Acute upper respiratory infection, unspecified (principal); N39.0 Urinary tract infection, site not specified; K21.9 Gastro-esophageal reflux disease without esophagitis; F41.9 Anxiety disorder, unspecified; Z79.899 Other long term (current) drug therapy
CPT/HCPCS: 81002; 81025; 96365; 96375; 99284; J1885; J1956; J7030

== ENCOUNTER 2019-05-06 10:40 | Emergency (ER) | payer OTHER ==
[~2019-05-06] VITALS: Ht 160 cm; Wt 93.0 kg
[2019-05-06 10:52] VITALS: BP 131/97
--- NOTE | 2019-05-06 11:00 | NUR ---
PATIENT AMBULATED TO BED 06 AT THIS TIME.
--- NOTE | 2019-05-06 11:20 | NUR ---
PT PRESENTS TO ED WITH C/O LOWER BACK PAIN RADIATING TO RIGHT LOWER EXTREMITY FOR APPROX 2 WEEKS. DENIES ANY TRAUMA OR INJURY. DENIES DYSURIA OR ANY OTHER URINARY SYMPTOMS. DENIES N/V OR FEVER. VSS. MED HX: GERD, EPILEPSY, MIGRAINS, ENDOMETRIOSOS, POLY CYSTIC OVARIAN SYNDROME, HERNIATED DISCS ( L4,L5,S1), DEGENERATIVE DISC DISEASE. RX: OMEPRAZOLE, FLEXERIL, KEPPRA, DEPAKOTE, IMITREX
[2019-05-06] MEDS ORDERED: KETOROLAC 60 MG/2 ML VIAL IM ONE (11:45)
--- NOTE | 2019-05-06 12:00 | NUR ---
PATIENT TAKEN FOR XRAYS VIA WHEELCHAIR AT THIS TIME.
[2019-05-06 12:50] VITALS: BP 127/88
--- NOTE | 2019-05-06 12:50 | NUR ---
Patient discharged with v/s stable. Written and verbal after care instructions given and explained. Patient alert, oriented and verbalized understanding of instructions. Ambulatory with steady gait. All questions addressed prior to discharge. ID band removed. Patient advised to follow up with PMD. Rx of TRAMADOL, FLEXERIL, MOTRIN given. Patient educated on indication of medication including possible reaction and side effects. Opportunity to ask questions provided and answered.
== END 2019-05-06 12:50 | disposition home or self-care (01) ==
LOC: MED 10:40
DX: M54.41 Lumbago with sciatica, right side (principal); K21.9 Gastro-esophageal reflux disease without esophagitis; Z79.899 Other long term (current) drug therapy; Z86.69 Personal history of other diseases of the nervous system and sense organs
CPT/HCPCS: 72100; 96372; 99283; J1885

== ENCOUNTER 2020-06-22 11:28 | Emergency (ER) | payer OTHER ==
[~2020-06-22] VITALS: Ht 160 cm; Wt 99.8 kg
[~2020-06-22 11:28] MED LIST changes: +METH-1681 PO; -METH500T14 PO; -OMEP40EC1 PO; +OMEP40EC24 PO
[2020-06-22 11:34] VITALS: BP 133/89
--- NOTE | 2020-06-22 11:41 | NUR ---
34 y/o female from home c/o lower abd pain that radiates to lower back x 2 wks. Denies urinary symptoms. 7/10 constant stabbing pain to lower abd. +nausea, denies vomiting/diarrhea. Afebrile. Abd soft, round, nontender to palp. Positioned for comfort. VSS medhx: GERD, Epilepsy, POS, Endometriosis, Migraines
[2020-06-22] MEDS ORDERED: NACL 0.9% 1,000 ML IV ONE (11:50)
[2020-06-22] MEDS ORDERED: KETOROLAC 30 MG/ML VIAL IVP ONE (11:50)
[2020-06-22] MEDS ORDERED: ONDANSETRON 4 MG/2 ML VIAL IVP ONE (11:50)
[2020-06-22 12:06] LABS: BASOPHILS # (AUTO) 0.1 K/uL (0.00-0.22); BASOPHILS % (AUTO) 0.4 % (0.0-2.0); EOSINOPHILS # (AUTO) 0.1 K/uL (0-0.4); EOSINOPHILS % (AUTO) 0.8 % (0.0-4.0); HEMATOCRIT 38.5 % (36-48); HEMOGLOBIN 12.9 g/dL (12.0-16.0); LYMPHOCYTES # (AUTO) 2.9 K/uL (2.5-16.5); LYMPHOCYTES % (AUTO) 25.9 % (20.5-51.1); MEAN CORPUSCULAR HEMOGLOBIN 33 pg (27-31); MEAN CORPUSCULAR HGB CONC 34 g/dL (33-37); MEAN CORPUSCULAR VOLUME 97.2 fL (80-94); MONOCYTES # (AUTO) 0.7 K/uL (0.8-1.0); MONOCYTES % (AUTO) 6.3 % (1.7-9.3); NEUTROPHILS # (AUTO) 7.6 K/uL (1.8-7.7); NEUTROPHILS % (AUTO) 66.6 % (42.2-75.2); PLATELET COUNT (AUTO) 357 K/uL (140-450); RED BLOOD CELL COUNT(AUTO) 3.96 MIL/uL (4.20-5.40); RED CELL DISTRIBUTION WIDTH 13.2 % (11.6-13.7); WHITE BLOOD COUNT (AUTO) 11.4 K/uL (4.8-10.8)
--- NOTE | 2020-06-22 12:08 | NUR ---
20G IV placed to left AC, blood drawn at this time and given to pharmacy laboratory technician
--- NOTE | 2020-06-22 12:12 | NUR ---
Ultrasound at bedside
[2020-06-22 12:20] LABS: ALBUMIN 3.5 g/dL (3.4-5.0); ANION GAP 12.7 (8-16); CARBON DIOXIDE 24.6 mmol/L (21-32); CREATININE 0.9 mg/dL (0.6-1.3); POTASSIUM 3.3 mmol/L (3.5-5.1); TOTAL BILIRUBIN 0.3 mg/dL (0.0-1.0)
[2020-06-22 12:33] LABS: APPEARANCE,URINE HAZY (CLEAR); BILIRUBIN,URINE NEGATIVE (NEGATIVE); BLOOD, URINE NEGATIVE (NEGATIVE); COLOR,URINE YELLOW (YELLOW); LEUKOCYTE ESTERASE ,URINE TRACE (NEGATIVE); NITRITE, URINE NEGATIVE (NEGATIVE); UGLUCOSE NEGATIVE (NEGATIVE)
[2020-06-22 12:58] LABS: RBC,URINE 0-5 /HPF (0-5)
--- NOTE | 2020-06-22 13:24 | NUR ---
IV removed, catheter intact and site benign. Applied folded 4x4 gauze and tape to stop bleeding.
[2020-06-22 13:29] VITALS: BP 139/93
--- NOTE | 2020-06-22 13:30 | NUR ---
Patient discharged with v/s stable. Written and verbal after care instructions given and explained. Patient alert, oriented and verbalized understanding of instructions. Ambulatory with steady gait. All questions addressed prior to discharge. ID band removed. Patient advised to follow up with PMD. Rx of Macrobid 100mg given. Patient educated on indication of medication including possible reaction and side effects. Opportunity to ask questions provided and answered.
== END 2020-06-22 13:30 | disposition home or self-care (01) ==
LOC: MED 11:28
DX: O23.41 Unspecified infection of urinary tract in pregnancy, first trimester (principal); K21.9 Gastro-esophageal reflux disease without esophagitis; N80.9 Endometriosis, unspecified; G43.909 Migraine, unspecified, not intractable, without status migrainosus; Z98.890 Other specified postprocedural states; Z79.899 Other long term (current) drug therapy; Z3A.01 Less than 8 weeks gestation of pregnancy
CPT/HCPCS: 36415; 76801; 80053; 81001; 81025; 84702; 85025; 86900; 86901; 87086; 87186; 96361; 96374; 96375; 99284; J1885; J2405; J7030; Q0092

== ENCOUNTER 2020-08-16 09:56 | Emergency (ER) | payer OTHER ==
[~2020-08-16] VITALS: Ht 165.1 cm; Wt 90.7 kg
[2020-08-16 09:58] VITALS: BP 137/71
--- NOTE | 2020-08-16 09:58 | NUR ---
PT AMBULATED TO BED 6, STEADY GAIT.
[2020-08-16] MEDS ORDERED: DIVA500T1 PO (10:09)
[2020-08-16] MEDS ORDERED: CYCL10TA13 PO (10:09)
--- NOTE | 2020-08-16 10:10 | NUR ---
DR. CARDONA AT BEDSIDE EVALUATING PT.
--- NOTE | 2020-08-16 10:13 | NUR ---
35 Y/F PRESENTS TO ED C/O LOWER ABD PAIN ON AND OFF 10 "SHARP STABBING PAIN" AND CRAMPING FOR FEW DAYS, PT DENIES INJURY. DENIES VAGINAL BLEEDING/ DISCHARGE. DENIES DYSURIA OR HEMATURIA. PT DENIES ANY ALLEVIATING OR AGGRAVATING FACTORS. 16 WEEKS . [employer]. G-2 P-1 A-0 HX EPILEPSY, GERD RX KEPPRA, DEPAKOTE, PRILOSEC, FLEXERIL
--- NOTE | 2020-08-16 10:21 | NUR ---
LAB AT BEDSIDE.
--- NOTE | 2020-08-16 10:50 | NUR ---
ULTRASOUND AT BEDSIDE.
[2020-08-16 10:58] LABS: BASOPHILS # (AUTO) 0.1 K/uL (0.00-0.22); BASOPHILS % (AUTO) 0.5 % (0.0-2.0); EOSINOPHILS # (AUTO) 0.1 K/uL (0-0.4); EOSINOPHILS % (AUTO) 0.6 % (0.0-4.0); HEMATOCRIT 35.7 % (36-48); HEMOGLOBIN 11.9 g/dL (12.0-16.0); LYMPHOCYTES # (AUTO) 2.1 K/uL (2.5-16.5); LYMPHOCYTES % (AUTO) 20.2 % (20.5-51.1); MEAN CORPUSCULAR HEMOGLOBIN 32 pg (27-31); MEAN CORPUSCULAR HGB CONC 34 g/dL (33-37); MONOCYTES # (AUTO) 0.6 K/uL (0.8-1.0); MONOCYTES % (AUTO) 5.6 % (1.7-9.3); NEUTROPHILS # (AUTO) 7.5 K/uL (1.8-7.7); NEUTROPHILS % (AUTO) 73.1 % (42.2-75.2); PLATELET COUNT (AUTO) 311 K/uL (140-450); RED BLOOD CELL COUNT(AUTO) 3.79 MIL/uL (4.20-5.40); RED CELL DISTRIBUTION WIDTH 12.5 % (11.6-13.7); WHITE BLOOD COUNT (AUTO) 10.3 K/uL (4.8-10.8)
[2020-08-16 11:16] LABS: APPEARANCE,URINE CLEAR (CLEAR); BLOOD, URINE NEGATIVE (NEGATIVE); COLOR,URINE YELLOW (YELLOW); PH,URINE 6.5 (5.0-9.0); UGLUCOSE NEGATIVE (NEGATIVE)
[2020-08-16 11:17] LABS: BILIRUBIN,URINE NEGATIVE (NEGATIVE); LEUKOCYTE ESTERASE ,URINE NEGATIVE (NEGATIVE); NITRITE, URINE NEGATIVE (NEGATIVE)
[2020-08-16 11:27] LABS: ANION GAP 19.5 (8-16); CARBON DIOXIDE 19.2 mmol/L (21-32); CREATININE 0.6 mg/dL (0.6-1.3); POTASSIUM 3.7 mmol/L (3.5-5.1)
[2020-08-16 11:28] LABS: ALBUMIN 2.9 g/dL (3.4-5.0); TOTAL BILIRUBIN 0.3 mg/dL (0.0-1.0)
--- NOTE | 2020-08-16 11:36 | NUR ---
PT AMBULATED TO BATHROOM, STEADY GAIT.
--- NOTE | 2020-08-16 12:20 | NUR ---
PT REPORTING NAUSEA, DR. CARDONA MADE AWARE AND WILL PLACE ANTIEMETIC ORDER.
[2020-08-16] MEDS ORDERED: ONDANSETRON 4 MG ODT PO ONE (12:25)
[2020-08-16 12:57] VITALS: BP 115/74
--- NOTE | 2020-08-16 12:57 | NUR ---
DR. CARDONA AT BEDSIDE REEVALUTING PT.
== END 2020-08-16 12:58 | disposition home or self-care (01) ==
LOC: MED 09:56
DX: O26.892 Other specified pregnancy related conditions, second trimester (principal); K21.9 Gastro-esophageal reflux disease without esophagitis; R56.9 Unspecified convulsions; Z3A.16 16 weeks gestation of pregnancy; Z79.899 Other long term (current) drug therapy
CPT/HCPCS: 36415; 76805; 80053; 81003; 81025; 84702; 85025; 86900; 86901; 99284; Q0092; Q0162

== ENCOUNTER 2022-06-24 15:55 | Emergency (ER) | payer OTHER ==
[~2022-06-24] VITALS: Ht 160 cm; Wt 86.2 kg
[~2022-06-24 15:55] MED LIST changes: +CYCL-655 PO; +DIVA500T1 PO; -LORA-476 PO; -METH-1681 PO; -ONDA4TAB PO; -OXCA600T2 PO; -PAX10 PO; -SUMA100T1 PO; -TRAM50TA1 PO
[2022-06-24 16:02] VITALS: BP 174/122
--- NOTE | 2022-06-24 16:16 | NUR ---
36 Y/O F BIBA C/O LOWER BACK PAIN 7/10 RADIATING TO LEFT LEG X 2 WEEKS. PT ALSO C/O NUMBNESS ON L TOES. NKA PMH: REFLUX, SEIZURE, OVARIAN SURGERY
[2022-06-24] MEDS ORDERED: NACL 0.9% 1,000 ML IV ONE (16:20)
[2022-06-24] MEDS ORDERED: KETOROLAC 30 MG/ML VIAL IVP ONE (16:20)
--- NOTE | 2022-06-24 17:01 | NUR ---
DR NORTH AT BEDSIDE.
[2022-06-24] MEDS ORDERED: MORPHINE SULFATE 4 MG/ML SYR IVP ONE (17:15)
[2022-06-24] MEDS ORDERED: ACET-8386 PO (17:26)
[2022-06-24] MEDS ORDERED: CIPR500T4 PO (17:26)
[2022-06-24 17:36] VITALS: BP 134/84
--- NOTE | 2022-06-24 17:38 | NUR ---
Patient discharged with v/s stable. Written and verbal after care instructions given and explained. Patient alert, oriented and verbalized understanding of instructions. Ambulatory with steady gait. All questions addressed prior to discharge. ID band removed. Patient advised to follow up with PMD. Rx of HYDROCODONE/ACETAMINOPHEN, CIPROFLOXACIN given. Opportunity to ask questions provided and answered.
== END 2022-06-24 17:38 | disposition home or self-care (01) ==
LOC: MED 15:55
DX: N39.0 Urinary tract infection, site not specified (principal); M54.50 Low back pain, unspecified; K21.9 Gastro-esophageal reflux disease without esophagitis; Z86.69 Personal history of other diseases of the nervous system and sense organs; Z98.890 Other specified postprocedural states; Z79.899 Other long term (current) drug therapy
CPT/HCPCS: 81002; 81025; 96361; 96374; 96375; 99284; J1885; J2270; J7030

== ENCOUNTER 2022-06-29 16:41 | Emergency (ER) | payer OTHER ==
[~2022-06-29] VITALS: Ht 160 cm; Wt 86.2 kg
[2022-06-29 16:41] VITALS: BP 146/97
[~2022-06-29 16:41] MED LIST changes: +ACET-8386 PO; +CIPR500T4 PO
[2022-06-29] MEDS ORDERED: LIDOCAINE 5% 1 EA PATCH TP STA (16:49)
[2022-06-29] MEDS ORDERED: KETOROLAC 30 MG/ML VIAL IM ONE (16:50)
[2022-06-29] MEDS ORDERED: HYDROcodone/APAP 10/325 MG 1 TAB TAB PO STA (18:42)
[2022-06-29] MEDS ORDERED: ACET-8386 PO (18:44)
[2022-06-29 19:13] VITALS: BP 162/100
--- NOTE | 2022-06-29 19:13 | NUR ---
Patient discharged with v/s stable. Written and verbal after care instructions ABOUT BACK EXERCISES AND SCIATICA given and explained. Patient alert, oriented and verbalized understanding of instructions. Ambulatory with steady gait. All questions addressed prior to discharge. ID band removed. Patient advised to follow up with PMD. Rx of NORCO 5-325MG given. Patient educated on indication of medication including possible reaction and side effects. Opportunity to ask questions provided and answered.
== END 2022-06-29 19:13 | disposition home or self-care (01) ==
LOC: MED 16:41
DX: M54.32 Sciatica, left side (principal); K21.9 Gastro-esophageal reflux disease without esophagitis
CPT/HCPCS: 72110; 81002; 81025; 96372; 99283; J1885; Q0092